=== PATIENT | female | born 1995 | race Caucasian/White ===

== ENCOUNTER → 2016-11-15 | Outpatient (CLI) | payer OTHER ==
[2016-11-16 11:36] LABS: MEAN CORPUSCULAR HEMOGLOBIN 26.9 pg (27.0-33.0); MEAN CORPUSCULAR HGB CONC 32.9 g/dl (32.0-36.5); MEAN CORPUSCULAR VOLUME 81.7 fl (80.0-96.0); PLATELET COUNT, AUTOMATED 296 k/mm3 (150-450); RED CELL DISTRIBUTION WIDTH 12.7 % (11.5-14.5); WHITE BLOOD COUNT 12.9 K/mm3 (4.0-10.0)
[2016-11-16 11:54] LABS: EOSINOPHILS 3 % (0-5)
[2016-11-16 11:57] LABS: HBsAg Prenatal NEGATIVE (NEGATIVE)
[2016-11-16 14:28] LABS: CONTROL LINE INT CTR LINE PRESENT; HIV SCRN NEGATIVE (NEGATIVE); HIV SCRN1 NEGATIVE (NEGATIVE)
== END ==
LOC: M LRY 15:13
PROVIDERS: ATTEND Specialist
DX: Z34.81 Encounter for supervision of other normal pregnancy, first trimester (principal)

== ENCOUNTER → 2017-01-10 | Outpatient (CLI) | payer OTHER ==
--- NOTE | 2017-01-10 16:28 | REP ---
OB ULTRASOUND: Real-time sonographic evaluation of the gravid uterus is performed. There is a single living intrauterine gestation. The estimated gestational age is 18 weeks 5 days with EDC 06/08/2017. BPD 44 mm = 19 weeks 3 day HC 161 mm = 18 weeks 6 days AC 132 mm = 18 weeks 5 day Femur length 28 mm = 18 weeks 4 days HC/AC ratio 1.22 within normal range. Estimated weight 253 grams at the 45th percentile. Cervix is closed measures 2.6 cm in length. heart rate 144 beats per minute. SEEN/GROSSLY UNREMARKABLE Lateral ventricles Yes Posterior fossa Yes Upper lip Yes Four-chamber heart Yes LVOT Yes RVOT Yes Stomach Yes Cord insertion Yes Three vessel cord Yes Kidneys Yes Bladder Yes Spine No position: Vertex. Placenta: Anterior and grade 0 with no previa or abruption. Amniotic fluid: Within normal limits. Signed by Von Lezama MD 01/11/2017 03:19 P
== END ==
LOC: M SMT 14:56
PROVIDERS: ATTEND Specialist
DX: Z36 Encounter for antenatal screening of mother (principal); Z3A.18 18 weeks gestation of pregnancy

== ENCOUNTER 2017-02-01 21:47 | Outpatient (CLI) | payer OTHER ==
[~2017-02-01] VITALS: Ht 157.5 cm; Wt 72.0 kg
[2017-02-01 22:00] VITALS: BP 129/70
[2017-02-01] MEDS ORDERED: PRENTAB55 PO (22:10)
== END 2017-02-02 00:15 | disposition home or self-care (01) ==
LOC: M LDO 21:47
PROVIDERS: ATTEND Obstetrics & Gynecology
DX: O99.89 Other specified diseases and conditions complicating pregnancy, childbirth and the puerperium (principal); Z3A.22 22 weeks gestation of pregnancy; W19.XXXA Unspecified fall, initial encounter; X58.XXXA Exposure to other specified factors, initial encounter; Y93.9 Activity, unspecified; Y92.9 Unspecified place or not applicable; Y99.8 Other external cause status

== ENCOUNTER → 2017-02-04 | Outpatient (CLI) | payer OTHER ==
[~2017-02-04] MED LIST: PRENTAB55 PO
--- NOTE | 2017-02-05 04:43 | REP ---
Clinical: Anatomical evaluation. Comparison: 01/10/2017 . Findings: Examination demonstrates a single live intrauterine in breech presentation. motion is identified by technologist. Placenta is noted anteriorly and grade one without evidence for placenta previa or abruption. Amniotic fluid volume is normal. Cervix measures 4.0 cm in length and appears closed. No evidence for nuchal cord. Gestational age by LMP 22 weeks 2 days with KENDRA 06/08/2017 . Gestational age by current measurements 22 weeks 1 day with KENDRA 06/09/2017 . FHR equals 147 beats per minute. Estimated weight 511 grams ( 52nd percentile). Anatomical assessment demonstrates normal structures including cranium, choroid plexus, cavum, cerebellum/posterior fossa, facial features, lungs, four-chamber heart/ventricular outflow tracts, diaphragm, stomach, cord insertion/three-vessel cord, kidneys/bladder, spine, and extremities. Impression: Single live intrauterine in breech presentation demonstrating appropriate interval growth. Anatomical assessment is complete and normal. Signed by Nile Chang MD 02/05/2017 04:35 A
== END ==
LOC: M SMT 14:49
PROVIDERS: ATTEND Specialist
DX: Z36 Encounter for antenatal screening of mother (principal); Z3A.22 22 weeks gestation of pregnancy

== ENCOUNTER → 2017-03-12 | Outpatient (CLI) | payer OTHER ==
[2017-03-12 16:33] LABS: BASO % 0.4 % (0.0-1.0); EOS # 0.2 K/mm3 (0.0-0.50); EOS % 2.1 % (0.0-3.0); LARGE UNSTAINED CELL # 0.1 K/mm3 (0.0-0.4); LYMPH # 1.9 K/mm3 (1.5-6.5); LYMPH % 16.6 % (24.0-44.0); MEAN CORPUSCULAR HGB CONC 33.2 g/dl (32.0-36.5); MEAN CORPUSCULAR VOLUME 84.3 fl (80.0-96.0); MONO # 0.6 K/mm3 (0.0-0.8); NEUTROPHILS % 73.9 % (36.0-66.0); PLATELET COUNT, AUTOMATED 276 k/mm3 (150-450); RED CELL DISTRIBUTION WIDTH 12.9 % (11.5-14.5); WHITE BLOOD COUNT 10.8 K/mm3 (4.0-10.0)
== END ==
LOC: M SMT 13:13
PROVIDERS: ATTEND Specialist
DX: Z34.82 Encounter for supervision of other normal pregnancy, second trimester (principal)

== ENCOUNTER → 2017-05-16 | Outpatient (REF) | payer OTHER ==
[~2017-05-16] MED LIST changes: +ACET50TA PO; +IBUP-1114 PO
== END ==
LOC: M LAB REF 17:17
PROVIDERS: ATTEND Specialist
DX: Z34.83 Encounter for supervision of other normal pregnancy, third trimester (principal)

== ENCOUNTER 2017-05-23 21:03 | Outpatient (CLI) | payer OTHER ==
[~2017-05-23 21:03] MED LIST changes: -ACET50TA PO; -IBUP-1114 PO
[2017-05-23 21:12] VITALS: BP 133/77
== END 2017-05-24 00:02 | disposition home or self-care (01) ==
LOC: M LDO 21:03
PROVIDERS: ATTEND Specialist
DX: O47.1 False labor at or after 37 completed weeks of gestation (principal); Z3A.37 37 weeks gestation of pregnancy

== ENCOUNTER 2017-06-08 20:27 | Inpatient (IN) | payer OTHER ==
[~2017-06-08] VITALS: Ht 160 cm; Wt 82.0 kg
[2017-06-08 23:44] LABS: MEAN CORPUSCULAR HEMOGLOBIN 25.6 pg (27.0-33.0); MEAN CORPUSCULAR HGB CONC 32.5 g/dl (32.0-36.5); MEAN CORPUSCULAR VOLUME 78.7 fl (80.0-96.0); RED CELL DISTRIBUTION WIDTH 14.8 % (11.5-14.5); WHITE BLOOD COUNT 13.2 K/mm3 (4.0-10.0)
[2017-06-09] MEDS ORDERED: PROMETHAZINE INJ 25 MG/ML VIAL (J2550) IV ONE (00:30)
[2017-06-09] MEDS ORDERED: BUTORPHANOL 2 MG/ML INJ (J0595) IV ONE (00:30)
[2017-06-09] MEDS ORDERED: LR 1,000 ML IV SCH (02:18)
[2017-06-09] MEDS ORDERED: OXYTOCIN 30 UNITS IN 0.9% NaCl 500ML IV BAG (J2590) As Ordered ONE (02:27)
[2017-06-09] MEDS ORDERED: OXYTOCIN DRIP 30 UNITS in APPROPRIATE DILUENT 1 EA IV SCH (02:30)
--- NOTE | 2017-06-09 02:54 | HPE ---
DATE OF ADMISSION: 06/08/2017 21-year-old (G) 3, para (P) 0-0-2-0 female at 40-0/7 weeks gestation by 11-week ultrasound, estimated date of confinement (EDC) of 06/07/2017, presents with regular contractions every 3-5 minutes for the last several hours. Contractions became more intense. She denies vaginal bleeding. There is good movement. COURSE: The patient initiated care at 11 weeks gestation on 11/16/2016. Her first trimester blood pressure was 114/68, weight 152 pounds. Her course was unremarkable. MEDICAL HISTORY: None. SURGICAL HISTORY: Cholecystectomy. ALLERGIES: None. SOCIAL HISTORY: The patient is . Patient denies cigarettes, alcohol or drug use. FAMILY HISTORY: Noncontributory. PHYSICAL EXAMINATION: VITAL SIGNS: Blood pressure 130/78, pulse 84. She appears uncomfortable. HEAD/NECK: Examination normal. LUNGS: Clear. HEART: Regular rate and rhythm. ABDOMEN: Nontender. Gravid. heart tones category 1. STERILE VAGINAL EXAMINATION: Cervix 3 cm, 90% effaced, -2 station, vertex. Contractions every 3-4 minutes. LABORATORIES: Blood type B positive. Rubella immune. RPR nonreactive. Hepatitis B and C negative. HIV negative. She was group B Streptococcus (GBS) negative on 05/16/2017. ASSESSMENT: 21-year-old (G) 3, para (P) 0-0-2-0 at 40-1/7 weeks gestation presents in early labor. The patient is admitted on 06/08/2017.
[2017-06-09] MEDS ORDERED: FENTANYL 2MCG/ML ROPIVACAINE 0.2% IN 0.9% NACL 200ML IVBAG As Ordered ONE (03:57)
[2017-06-09] MEDS ORDERED: FENTANYL/ROPIVACAINE/NACL BAG 200 ML EPIDURAL SCH (05:05)
[2017-06-09] MEDS ORDERED: LACTATED RINGER'S 1000 ML IV PRN ×2 (05:05)
[2017-06-09] MEDS ORDERED: EPIDURAL COMMENT XX SCH ×2 (05:05)
[2017-06-09] MEDS ORDERED: EPIDURAL/PCA KEYS XX PRN ×2 (05:05)
[2017-06-09] MEDS ORDERED: REFRIGERATOR IV KEYS XX PRN ×2 (05:05)
[2017-06-09] MEDS ORDERED: NALOXONE INJ 0.4 MG/1 ML VIAL (J2310) IV PRN ×2 (05:05)
[2017-06-09] MEDS ORDERED: ONDANSETRON 4MG/2ML VIAL (J2405) IV PRN ×3 (05:05→08:15)
[2017-06-09] MEDS ORDERED: ePHEDrine SULFATE 25 MG/5 ML(5MG/ML) SYRINGE IV PRN ×2 (05:05)
[2017-06-09] MEDS ORDERED: diphenhydrAMINE INJ 50MG/ML VIAL (J1200) IV PRN ×2 (05:05)
[2017-06-09] MEDS ORDERED: ROPIVACAINE HCL IVBAG 200 ML EPIDURAL SCH (05:05)
[2017-06-09] MEDS ORDERED: LIDOCAINE 1% MDV INJ 50 ML VIAL INFIL ONE (08:15)
[2017-06-09] MEDS ORDERED: OXYTOCIN DRIP 30 UNITS in APPROPRIATE DILUENT 1 EA IV ONE (08:15)
[2017-06-09] MEDS ORDERED: RHOGAM 300 MCG (1500 IU) INJ (J2790) IM SCH (08:15)
[2017-06-09] MEDS ORDERED: MEASLES,MUMPS,RUBELLA VACCINE INJ (MMR-II) (90707) SC SCH (08:15)
[2017-06-09] MEDS ORDERED: METHYLERGONOVINE MALEATE 0.2 MG TAB PO PRN (08:15)
[2017-06-09] MEDS ORDERED: DIBUCAINE 1% OINTMENT 30GM TOP PRN (08:15)
[2017-06-09] MEDS ORDERED: DOCUSATE SODIUM 100 MG CAP PO PRN (08:15)
--- NOTE | 2017-06-09 08:27 | DN ---
DATE: 06/09/2017 PREDELIVERY DIAGNOSIS: 40-week gestation, labor. POSTDELIVERY DIAGNOSIS: Delivered. PROCEDURE: Spontaneous vaginal delivery. COOK NIGHT: Dr. Shin Valenzuela ANESTHESIA: Epidural. ESTIMATED BLOOD LOSS: 300 mL. FINDINGS: 6 pound, 6 ounce female infant. SCORES: 8 and 9. DELIVERY SUMMARY: After approximately a 15 minute second stage, the patient had spontaneous delivery of a 6 pound 6 ounce female infant, scores 8 and 9, under epidural anesthesia. A loose nuchal cord times one was reduced. The shoulders delivered spontaneously with ease. The infant cried spontaneously and was handed to the mother. Cord was doubly clamped and cut. Placenta delivered spontaneously and appeared to be intact. The patient received intravenous (IV) Pitocin immediately after delivery of placenta. First-degree perineal laceration and first-degree right anterior labial laceration were repaired under local anesthesia with #3-0 chromic in the usual fashion. Sponge and needle counts were correct.
[2017-06-09] MEDS: PRENATAL VITAMINS CHEWABLE TABLET PO SCH (09:00)
[2017-06-09 10:04] VITALS: BP 129/73
[2017-06-09] MEDS: IBUPROFEN 800 MG TAB PO PRN ×2 (13:57→22:37)
[2017-06-09 18:00] VITALS: BP 122/65
[2017-06-10] MEDS ORDERED: LIDOCAINE 1% MDV INJ 50 ML VIAL As Ordered ONE (00:09)
[2017-06-10 06:15] VITALS: BP 127/78
[2017-06-10] MEDS ORDERED: INFLUENZA QUADRIVALENT PF VACCINE 0.5ML SYRINGE (90686) IM ONE (09:00)
[2017-06-10] MEDS: PRENATAL VITAMINS CHEWABLE TABLET PO SCH (10:13)
[2017-06-10] MEDS: ACETAMINOPHEN 500 MG TAB PO PRN (10:14)
[2017-06-10] MEDS ORDERED: SLF 3 ML SYR IV PRN (13:45)
[2017-06-10] MEDS: SLF 3 ML SYR IV SCH ×2 (14:37→22:00)
[2017-06-10 17:58] VITALS: BP 124/77
[2017-06-10] MEDS: IBUPROFEN 800 MG TAB PO PRN (18:14)
[2017-06-11] MEDS: IBUPROFEN 800 MG TAB PO PRN ×2 (01:51→14:55)
[2017-06-11] MEDS: SLF 3 ML SYR IV SCH (06:00)
[2017-06-11 06:05] VITALS: BP 107/59
[2017-06-11] MEDS: ACETAMINOPHEN 500 MG TAB PO PRN (08:24)
[2017-06-11] MEDS: PRENATAL VITAMINS CHEWABLE TABLET PO SCH (08:25)
[2017-06-11] MEDS ORDERED: ACET50TA PO (10:36)
[2017-06-11] MEDS ORDERED: IBUP-1114 PO (10:36)
== END 2017-06-11 15:15 | disposition home or self-care (01) | DRG 775 ==
LOC: M LDO 20:27 → M LDI 23:09 → M OBS 06-09 09:59
PROVIDERS: ADMIT Specialist; ATTEND Specialist
PROC: 10E0XZZ Delivery of Products of Conception, External Approach (ICD-10-PCS; principal; 2017-06-09)
PROC: 0HQ9XZZ Repair Perineum Skin, External Approach (ICD-10-PCS; 2017-06-09)
DX: O69.82X0 Labor and delivery complicated by other cord entanglement, without compression, not applicable or unspecified (principal); Z37.0 Single live birth; Z3A.40 40 weeks gestation of pregnancy; Z90.49 Acquired absence of other specified parts of digestive tract; O70.0 First degree perineal laceration during delivery